=== PATIENT | female | born 1960 | race Caucasian/White ===

== ENCOUNTER 2016-06-19 13:59 | Emergency (ER) | payer OTHER, BC ==
[~2016-06-19] VITALS: Ht 154.9 cm; Wt 70.7 kg
[~2016-06-19 13:59] MED LIST: CONJ1TAB PO
[2016-06-19 14:02] VITALS: TEMP 36.8; Ht 154.9 cm; Wt 70.7 kg
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
[2016-06-19] MEDS ORDERED: AMOX875T PO (15:15)
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
[2016-06-19 16:46] VITALS: BP 125/89; PULSE 79; O2SAT 98
== END 2016-06-19 16:47 | disposition home or self-care (01) ==
LOC: C.EDB 14:00 → C.EDD 16:47
DX: S16.1XXA Strain of muscle, fascia and tendon at neck level, initial encounter (principal); S39.012A Strain of muscle, fascia and tendon of lower back, initial encounter; S20.212A Contusion of left front wall of thorax, initial encounter; V43.52XA Car driver injured in collision with other type car in traffic accident, initial encounter; Y92.488 Other paved roadways as the place of occurrence of the external cause; J45.909 Unspecified asthma, uncomplicated; Z87.442 Personal history of urinary calculi; M54.12 Radiculopathy, cervical region; Z80.9 Family history of malignant neoplasm, unspecified; Z83.3 Family history of diabetes mellitus; Z83.79 Family history of other diseases of the digestive system; Z82.49 Family history of ischemic heart disease and other diseases of the circulatory system; Z84.1 Family history of disorders of kidney and ureter; Z83.6 Family history of other diseases of the respiratory system; Z79.899 Other long term (current) drug therapy

== ENCOUNTER → 2017-01-10 | Outpatient (CLI) | payer BC ==
[~2017-01-10] MED LIST changes: +AMOX875T PO
== END | disposition home or self-care (01) ==
LOC: C.PAPS 13:14
PROVIDERS: ATTEND Obstetrics & Gynecology
DX: Z01.419 Encounter for gynecological examination (general) (routine) without abnormal findings (principal)

== ENCOUNTER → 2017-01-19 | Outpatient (CLI) | payer BC ==
--- NOTE | 2017-01-19 15:21 | MAMMOGRAPHY REPORT ---
UNILATERAL LEFT DIGITAL DIAGNOSTIC MAMMOGRAM TOMOSYNTHESIS AND TARGETED LEFT ULTRASOUND: 01/19/2017 CLINICAL HISTORY: Callback from screening mammogram for possible left breast architectural distortion . Strong family history of breast cancer in her mother and grandmother, and aunts. TECHNIQUE: Breast tomosynthesis in addition to standard 2D mammography was performed. Spot compress ion left CC, MLO, and ML tomosynthesis images including C views were obtained. COMPARISON: Comparison is made to exams dated: 01/01/2016 mammogram, 01/10/2017 mammogram, 12/27/2014 mammogram, 12/21/2013 mammogram, 12/01/2012 mammogram, and 11/24/2011 mammogram - [facility]. BREAST COMPOSITION: There are scattered areas of fibroglandular density in the left breast. FINDINGS: The previously described possible area of architectural distortion in the left superior pos terior breast does not clearly persist on the additional spot compression views. A few adjacent over lapping lines are seen in the left superior posterior breast on the MLO view, which appears similar t o the 2016 exam and likely represents normal fibroglandular tissue/Harlan's ligaments. No suspicious mass or obvious architectural distortion is seen on the additional images. Targeted ultrasound was performed of the left far superior breast in the region of the mammographic f inding. Sonographically normal tissue is seen, without evidence of a mass or other suspicious sonogr aphic abnormality. IMPRESSION: ACR-BI-RADS CATEGORY 3: PROBABLY BENIGN, TARGETED ULTRASOUND ACR-BI-RADS CATEGORY 3: PRO BABLY BENIGN No persistent architectural distortion seen on the additional views, without corresponding suspicious sonographic abnormality evident. Findings are probably benign and likely represent normal fibroglan dular tissue. Recommend follow-up diagnostic tomosynthesis mammograms and possible ultrasound of the left breast in 6 months to confirm stability. The patient has been verbally notified of the results. Approximately 10% of breast cancers are not detected with mammography. A negative mammographic report should not delay biopsy if a clinically suggestive mass is present. Hayley Goddard M.D. /:01/19/2017 09:24:41 Yard Conductor: Mary MONTOYA)(Quinn), [facility] letter sent: Follow Up Recommended 3 BI-RADS Code: ACR-BI-RADS Category 3: Probably Benign Ultrasound BI-RADS: ACR-BI-RADS Category 3: Pr obably Benign
== END | disposition home or self-care (01) ==
LOC: C.MAMM 08:48
PROVIDERS: ATTEND Obstetrics & Gynecology
DX: R92.8 Other abnormal and inconclusive findings on diagnostic imaging of breast (principal)

== ENCOUNTER → 2017-07-20 | Outpatient (CLI) | payer OTHER ==
--- NOTE | 2017-07-20 15:25 | MAMMOGRAPHY REPORT ---
UNILATERAL LEFT DIGITAL DIAGNOSTIC MAMMOGRAM TOMOSYNTHESIS WITH CAD AND TARGETED LEFT ULTRASOUND: 07/05 CLINICAL HISTORY: Six-month follow-up left breast. The patient reports partial inversion of her left nipple which is new over the last 6 months. She denies any nipple discharge, skin changes of the ni pple, palpable lumps, or other complaints. TECHNIQUE: Breast tomosynthesis in addition to standard 2D mammography was performed. Current study was also evaluated with a Computer Aided Detection (CAD) system. Left CC and MLO 2D and tomosynthesi s images were obtained. COMPARISON: Comparison is made to exams dated: 01/19/2017 mammogram, 01/19/2017 ultrasound, 7 mammogram, 01/01/2016 mammogram, 12/27/2014 mammogram, and 12/21/2013 mammogram - [facility]. BREAST COMPOSITION: There are scattered areas of fibroglandular density in the left breast. FINDINGS: Again noted are a few adjacent overlapping lines seen within the left superior posterior b reast on the MLO view. This appears similar on tomosynthesis images to the January 2017 exam, and o n 2D images appears similar to prior exams including the 2011 exam. On the tomosynthesis images the area has the appearance of normal fibroglandular tissue/Harlan's ligaments, with no clear architectur al distortion seen. The remainder of the left breast is stable compared to prior exams, without susp icious masses, calcifications, or areas of architectural distortion noted. Targeted ultrasound was performed of the left subareolar breast to evaluate the partial nipple invers ion. Sonographically normal tissue is seen in this region, without evidence of a mass or other suspi cious sonographic abnormality. IMPRESSION: ACR BI-RADS CATEGORY 2: BENIGN, TARGETED ULTRASOUND ACR BI-RADS CATEGORY 2: BENIGN No persistent architectural distortion seen within the left breast on the current exam. Findings are benign and compatible with normal fibroglandular tissue. No subareolar mass or other etiology for p artial left nipple inversion evident. There is no mammographic or targeted sonographic evidence of m alignancy. Recommend clinical follow-up for partial left nipple inversion. Also recommend routine b ilateral screening mammograms which are due January 2018. The patient has been verbally notified of the results. Approximately 10% of breast cancers are not detected with mammography. A negative mammographic report should not delay biopsy if a clinically suggestive mass is present. Hayley Goddard M.D. ah/:07/20/2017 09:57:43 Prescriptionist: Mary GILLIAM(Magui)(M), [facility] letter sent: Normal 1/2 BI-RADS Code: ACR BI-RADS Category 2: Benign Ultrasound BI-RADS: ACR BI-RADS Category 2: Benign
== END | disposition home or self-care (01) ==
LOC: C.MAMM 09:30
PROVIDERS: ATTEND Obstetrics & Gynecology
DX: R92.8 Other abnormal and inconclusive findings on diagnostic imaging of breast (principal)